=== PATIENT | female | born 1955 | race African-American/Black ===

== ENCOUNTER → 2017-02-04 | Outpatient (CLI) | payer OTHER ==
[~2017-02-04] MED LIST: ALEVE220 M1 PO; ALPRAZOLAM 0.0.25 MG PO; AMITRIPTYLINE H50 M3 PO; ARICEPT 5 MG TAB5 MG PO; AZO BLADDER CO300 MG PO; BIOTIN10000 MC1 PO; BLADDER CONTROL ADVA PO; CALCIUM MG ZINC PO; CENTRUM SILVER1 EAC4 PO; CIPRO HC OTIC S10 ML OT; COLACE100 MG PO; DANDELION ROOT PO; DETROL LA4 MG PO; FLAXSEED OIL1000 MG PO; HCTZ; HYDROCHLOROTH12.5 MG PO; HYDROCHLOROTHIA25 M2 PO; HYDROCODON-ACE1 EAC5 PO; IBUPROFEN 800800 M1 PO; MELOXICAM7.5 MG PO; MOM PO; MOVE FREE ULTR1 EAC1 PO; OSTEO BI-FLEX1 EAC1 PO; SALMON OIL 1,01 EACH PO; VESICARE 5 MG TA5 MG PO; VITAMIN A PO; VITAMIN B COMP1 EACH PO; VITAMIN B-12500 MCG PO; VITAMIN B-6100 MG PO; VITAMIN D31000 UNI2 PO; VITAMIN D35000 UNIT PO; WOMEN'S DAILY1 EAC2 PO; ZANTAC 150MG T150 MG PO; [UNRECOGNIZED DRUG - OTHER] PO; [UNRECOGNIZED DRUG - OTHER] PO; [UNRECOGNIZED DRUG - REMARK] PO
== END ==
LOC: RAD 01:47
DX: Z12.31 Encounter for screening mammogram for malignant neoplasm of breast (principal)

== ENCOUNTER 2017-02-11 06:18 | Inpatient (IN) | payer OTHER ==
[2017-02-04 09:43] LABS: URINE BILIRUBIN NEGATIVE (Negative); URINE BLOOD NEGATIVE (Negative); URINE COLOR YELLOW; URINE GLUCOSE-RANDOM* NEGATIVE (Negative); URINE KETONES NEGATIVE (Negative); URINE LEUKOCYTES-REFLEX NEGATIVE (Negative); URINE PROTEIN (DIPSTICK) NEGATIVE (Negative); URINE UROBILINOGEN 0.2 E.U./dl (0.2-1.0)
[2017-02-04 09:50] LABS: HEMATOCRIT 39.8 % (37.0-47.0); HEMOGLOBIN 13.2 gm/dL (12.0-15.0); MCH 29.6 pg (26.0-34.0); MCHC 33.1 g/dL (28.0-37.0); MCV 89.3 fL (80.0-100.0); RBC 4.46 mil/uL (4.20-5.00); RDW 15.4 % (10.5-14.5); WBC 10.4 thou/uL (4.0-11.0)
[2017-02-04 10:00] LABS: ALBUMIN 3.8 g/dL (3.4-5.0); CALCIUM 9.4 mg/dL (8.5-10.1); CREATININE 0.7 mg/dL (0.6-1.0); POTASSIUM 3.9 mmol/L (3.5-5.1)
[2017-02-04 10:02] LABS: PROTIME 10.2 Seconds (9.3-11.4)
[~2017-02-11] VITALS: Ht 157.5 cm; Wt 92.5 kg
--- NOTE | ~2017-02-11 | EKG ---
[address] [address] ELECTROCARDIOGRAM REPORT Name: TOI WILLIAM Room #: PRE IN M.R.#: [id number] Admission: Attend Phys: Car Sullivan MD Discharge: Date of : 51 Report #: [id number] THIS REPORT FOR: //name// [facility] Test Date: 2017-02-04 Test Time: 09:44:00 Pat Name: TOI WILLIAM Department: Room: Gender: F Factory Hand: Anel GARCIA : 1955 Requested By: Car Sullivan Order Number: [id number] MD: Georges Carroll Measurements Intervals [place] Rate: 78 P: 33 NV: 153 QRS: 12 QRSD: 82 T: 30 QT: 396 QTc: 452 Interpretive Statements Sinus rhythm No significant abnormality Compared to ECG 12/19/2011 10:12:32 No significant change was found Electronically Signed On 02-05-2017 8:47:16 CDT by Georges Carroll [email or web address] <ELECTRONICALLY SIGNED> By: Georges Carroll MD, [facility] 02/05/17 0847 [id number] 0944 Georges Carroll MD, FACC /EPI
--- NOTE | ~2017-02-11 | O ---
[facility] [place] [address] OPERATIVE REPORT Name: TOI WILLIAM Room #: 534-P [facility] IN M.R.#: [id number] Admission: 02/11/17 Attend Phys: Car Sullivan MD Discharge: Date of : 51 Report #: [id number] THIS REPORT FOR: //name// CC: Car Sullivan Jane Isra DATE OF SERVICE: 02/11/2017 PREOPERATIVE DIAGNOSIS: Right hip osteoarthritis. POSTOPERATIVE DIAGNOSIS: Right hip osteoarthritis. PROCEDURE: Right total hip arthroplasty. SURGEON: Car Sullivan MD. GEOSPATIAL SYSTEMS INTEGRATOR: Inés Wilkins PA-C. ANESTHESIA: General. IMPLANTS: [employer] size 9 Synergy standard offset press-fit stem, size 50 R3 acetabular cup with 1 acetabular screw and a size 32 -3 Oxinium head. ESTIMATED BLOOD LOSS: 150 mL. COMPLICATIONS: None. SPECIMENS: None. CONDITION UPON LEAVING THE OPERATING ROOM: Stable. INDICATIONS FOR PROCEDURE: The patient is a 61-year-old female with severe right hip osteoarthritis. She had failed conservative treatment for this and after discussion with her, she elected for right total hip arthroplasty. DESCRIPTION OF PROCEDURE: Risks, benefits, alternatives, complications were discussed in detail with the patient including but not limited to risk of anesthesia, risk of damage to nerves, arteries, blood vessels, risk for infection, bleeding, risk for continued hip pain, leg length discrepancy, instability and need for reoperation. Informed consent was obtained from the patient. The right hip was appropriately marked in the preoperative holding area. IV Ancef was given for preoperative antibiotics. She was brought to the operating room and placed in supine position on operating room table. General endotracheal anesthesia was induced without complication. She was then placed in the left lateral decubitus position with the right hip uppermost. Right hip and lower extremity were prepped and draped in normal sterile fashion. [address] [address] OPERATIVE REPORT Name: TOI WILLIAM Room #: 534-P ADM IN M.R.#: [id number] Admission: 02/11/17 Attend Phys: Car Sullivan MD Discharge: Date of : 51 Report #: [id number] was performed properly identifying the patient, procedure as well as the instrumentation and implants. All in the operating room were in agreement. A standard posterior approach to the hip was made with a 10 blade through the skin. Dissection was taken down to the fascia with Bovie cautery and fascia was cleaned off with Shukla elevator. A fresh #10 blade was used to make a fascial incision and curved Price scissors were used to extend the incision proximally and distally. The Charnley retractor was placed and trochanteric bursa was taken down with Bovie cautery. Piriformis tendon was identified, tagged and taken down Bovie. Short external rotators were also taken down with Bovie cautery. Capsulotomy was made and capsule ends were tagged for later repair. Hip was dislocated and there was extensive osteoarthritic change of the femoral head. Femoral neck cut was made 1 cm proximal to lesser trochanter based on preoperative templating. The femoral head was removed. Deep acetabular retractors were placed. The labrum was removed sharply. Pulvinar was removed with Bovie cautery. The acetabulum was then sequentially reamed up to a size 50 at which point, there was excellent bleeding cancellous bone. A size 49 trial cup was placed and found to have a good fit. A size 50 R3 acetabular cup was then seated in the acetabulum and 1 acetabular screw was placed for backup fixation. Polyethylene liner was placed for a 32 head. Attention was turned to the femur. This was reamed and broached up to a size 9, at which point a size 9 broach was stable. This was trialed with a high offset neck and a 32 +0 head. Hip was reduced, taken through range of motion, found to be stable, found to have somewhat increased leg length and a tight anterior capsule. This was then trialed with a standard offset neck and a 32 -3 head. Hip was reduced, taken through range of motion, found to be stable, found to have equal leg lengths and the anterior tightness of the capsule was improved, but still present and it was felt that this is her baseline and have to be stretched out over time. Hip was dislocated. Broach was removed. A final size 9 standard offset stem was placed. A 32 -3 Oxinium head was placed. Hip was reduced, taken through range of motion, found to be stable, found to have equal leg lengths. The wound was thoroughly irrigated with normal saline. A periarticular injection consisting of morphine, ropivacaine, epinephrine and Toradol was placed. A gram of vancomycin was placed in the hip joint. The capsule was repaired with 0 FiberWire. Piriformis was repaired with 0 FiberWire. Fascia was closed with 0 Vicryl, skin was closed with 2-0 Vicryl, 3-0 Monocryl, Dermabond and Aquacell were applied. The patient tolerated this procedure well and went to the recovery room under the care of anesthesia postoperatively. <ELECTRONICALLY SIGNED> By: Car Sullivan MD 02/12/17 0716 [id number] Car Sullivan MD /nt
[2017-02-11 10:23] VITALS: BP 135/74
[2017-02-11 20:00] VITALS: BP 127/57
[2017-02-12 04:00] VITALS: BP 108/49
[2017-02-12 04:59] LABS: HEMATOCRIT 32.2 % (37.0-47.0); HEMOGLOBIN 10.6 gm/dL (12.0-15.0); MCH 29.1 pg (26.0-34.0); MCV 88.3 fL (80.0-100.0); RBC 3.64 mil/uL (4.20-5.00); RDW 15.5 % (10.5-14.5); WBC 16.3 thou/uL (4.0-11.0)
[2017-02-12 07:20] VITALS: BP 107/44
[2017-02-12 15:30] VITALS: BP 121/56
[2017-02-12 20:00] VITALS: BP 111/61
[2017-02-13 05:58] VITALS: BP 108/56
[2017-02-13 06:26] LABS: HEMATOCRIT 29.7 % (37.0-47.0); HEMOGLOBIN 9.9 gm/dL (12.0-15.0); MCH 29.6 pg (26.0-34.0); MCHC 33.5 g/dL (28.0-37.0); MCV 88.4 fL (80.0-100.0); RBC 3.35 mil/uL (4.20-5.00); RDW 15.6 % (10.5-14.5); WBC 9.5 thou/uL (4.0-11.0)
[2017-02-13 07:59] VITALS: BP 104/42
[2017-02-13 11:07] VITALS: BP 104/42
[2017-02-13] MEDS ORDERED: MS CONTIN15 MG PO (12:00)
[2017-02-13] MEDS ORDERED: PERCOCET 10-321 EACH PO (12:00)
[2017-02-13] MEDS ORDERED: NEURONTIN 300300 M1 PO (12:01)
[2017-02-13 13:38] VITALS: BP 104/42
== END 2017-02-13 15:13 | disposition home or self-care (01) | DRG 470 ==
LOC: TBA 06:18 → 5S 06:18 → PRE 06:44 → 5S 15:02 → PRE 16:02 → 5S 02-13 15:13
PROVIDERS: Orthopaedic Surgery
PROC: 0SR901A Replacement of Right Hip Joint with Metal Synthetic Substitute, Uncemented, Open Approach (ICD-10-PCS; principal; 2017-02-11)
DX: M16.11 Unilateral primary osteoarthritis, right hip (principal); I10 Essential (primary) hypertension; F41.9 Anxiety disorder, unspecified; F03.90 Unspecified dementia, unspecified severity, without behavioral disturbance, psychotic disturbance, mood disturbance, and anxiety; K21.9 Gastro-esophageal reflux disease without esophagitis; Z96.642 Presence of left artificial hip joint; Z87.891 Personal history of nicotine dependence; Z79.899 Other long term (current) drug therapy
CPT/HCPCS: 10785; 50010; 50101; 50382; 50414; 50939; 51771; 52256; 53000; 53078; 53367; 54118; 56524; 56527; 56528; 56530; 57095; 62110; 62900; 70005

== ENCOUNTER → 2018-02-07 | Outpatient (CLI) | payer OTHER ==
[~2018-02-07] MED LIST changes: +MS CONTIN15 MG PO; +NEURONTIN 300300 M1 PO; +PERCOCET 10-321 EACH PO
== END ==
LOC: RAD 01:52
DX: Z12.31 Encounter for screening mammogram for malignant neoplasm of breast (principal)

== ENCOUNTER → 2019-12-28 | Outpatient (CLI) | payer OTHER | LOC: RAD 09:25 | PROVIDERS: ATTEND Internal Medicine | DX: Z12.31 Encounter for screening mammogram for malignant neoplasm of breast (principal) ==

== ENCOUNTER 2020-05-05 20:19 | Emergency (ER) | payer OTHER ==
[~2020-05-05] VITALS: Ht 157.5 cm; Wt 86.2 kg
[2020-05-05 22:32] VITALS: BP 118/71
== END 2020-05-05 22:38 | disposition home or self-care (01) ==
LOC: ER 20:19
DX: M54.2 Cervicalgia (principal); M25.512 Pain in left shoulder; M54.5 Low back pain; I10 Essential (primary) hypertension; K21.9 Gastro-esophageal reflux disease without esophagitis; Z79.899 Other long term (current) drug therapy; Z87.891 Personal history of nicotine dependence; V49.9XXA Car occupant (driver) (passenger) injured in unspecified traffic accident, initial encounter; Y93.89 Activity, other specified; Y92.89 Other specified places as the place of occurrence of the external cause; Y99.8 Other external cause status

== ENCOUNTER → 2021-06-29 | Outpatient (CLI) | payer OTHER | LOC: BC 10:05 | PROVIDERS: ATTEND Internal Medicine | DX: Z12.31 Encounter for screening mammogram for malignant neoplasm of breast (principal); N64.89 Other specified disorders of breast ==